=== PATIENT | male | born 1995 | race Caucasian/White ===

== ENCOUNTER 2019-06-02 16:31 | Emergency (ER) | payer BC ==
--- NOTE | 2019-06-02 17:02 | ED ---
Psychiatric Complaint - HPI Summary HPI Summary: This patient is a 24 year old M presenting to [facility] accompanied by with a chief complaint of worsening depression since 05/19/19 at 0800. Patient reports severe major depressive disorder for which he takes 20 mg of Trintellix daily. Pt reports prior hospitalization in 2011 for similar issues. Denies hx of having plan. Follows w counselor. Shx hernia repair. FMHx Mental illness ( depression and anxiety). - History Of Current Complaint Chief Complaint: EDMentalHealth Time Seen by Provider: 06/02/19 16:54 Accompanied By: Hx Obtained From: Patient Onset/Duration: Lasting Hours, Still Present Timing: Constant Aggravating Factor(s): Nothing Alleviating Factor(s): Nothing Related History: Positive For: Prior Psychiatric Issues Has Suicidal: Denies: With A Plan - Allergies/Home Medications Allergies/Adverse Reactions: Allergies Allergy/AdvReac Type Severity Reaction Status Date / Time No Known Allergies Allergy Verified 06/02/19 16:47 PMH/Surg Hx/FS Hx/Imm Hx Sensory History: Reports: Hx Contacts or Glasses Opthamlomology History: Reports: Hx Contacts or Glasses Psychiatric History: Reports: Hx Depression - Surgical History Surgery Procedure, Year, and Place: hernia repair Infectious Disease History: No Infectious Disease History: Denies: Traveled Outside the [place] in Last 30 Days - Family History Known Family History: Positive: Other - mental health (anxiety, depression) - Social History Alcohol Use: Rare Hx Substance Use: No Substance Use Type: Reports: None Hx Tobacco Use: No Smoking Status (MU): Never Smoked Tobacco Review of Systems Negative: Fever Positive: Depressed, Other - denies SI plan All Other Systems Reviewed And Are Negative: Yes Physical Exam - Summary Physical Exam Summary: Constitutional: Well-developed, Well-nourished, Alert. (-) Distressed Skin: Warm, Dry HENT: Normocephalic; Atraumatic Eyes: Conjunctiva normal Neck: Musculoskeletal ROM normal neck. (-) JVD, (-) Stridor, (-) Nuchal rigidity Cardio: Rhythm regular, rate normal, Heart sounds normal; Intact distal pulses; Radial pulses are 2+ and symmetric. (-) Murmur Pulmonary/Chest wall: Effort normal. (-) Respiratory distress, (-) Wheezes, (-) Rales Abd: Soft, (-) tenderness, (-) Distension, (-) Guarding, (-) Rebound Musculoskeletal: (-) Edema Lymph: (-) Cervical adenopathy Neuro: Alert, Oriented x3 Psych: positive depression and SI Triage Information Reviewed: Yes Vital Signs On Initial Exam: Initial Vitals Temp Pulse Resp BP Pulse Ox 97.8 F 87 14 139/82 99 06/02/19 16:42 06/02/19 16:42 06/02/19 16:42 06/02/19 16:42 06/02/19 16:42 Vital Signs Reviewed: Yes Procedures - Sedation Patient Received Moderate/Deep Sedation with Procedure: No Diagnostics - Vital Signs Vital Signs Temp Pulse Resp BP Pulse Ox 06/02/19 16:42 97.8 F 87 14 139/82 99 - Laboratory Result Diagrams: 06/02/19 17:04 06/02/19 17:04 Lab Statement: Any lab studies that have been ordered have been reviewed, and results considered in the medical decision making process. Course/Dx - Differential Dx/Clinical Impression Provider Diagnosis: Adjustment disorder - Physician Notifications Discussed Care Of Patient With: Nate Higginbotham Time Discussed With Above Provider: 18:00 Instructed by Provider To: Other - Pt is safe to go home Discharge ED - Sign-Out/Discharge Documenting (check all that apply): Patient Departure - discharge - Discharge Plan Condition: Stable Disposition: HOME Patient Education Materials: Depression (ED) Referrals: [facility] [Outside] (walk in hours are M-Th 930am-230 pm, F 10am-2pm) - Billing Disposition and Condition Condition: STABLE Disposition: Home - Attestation Statements Document Initiated by Scribe: Yes Documenting Scribe: Megan Cho Provider For Whom Isma is Documenting (Include Credential): Dr. Mckenzie Zuleta MD Scribe Attestation: Megan Dutton scribed for Dr. Mckenzie Zuleta MD on 06/02/19 at 2335. Scribe Documentation Reviewed: Yes Provider Attestation: The documentation as recorded by the susanibMegan solano accurately reflects the service I personally performed and the decisions made by me, Dr. Mckenzie Zuleta MD Status of Scribe Document: Viewed
[2019-06-02 17:17] LABS: ABS Basophils 0.1 10^3/ul (0-0.2); ABS Lymphocytes 1.7 10^3/ul (1.0-4.8); ABS Monocytes 0.7 10^3/ul (0-0.8); Eosinophil % 0.2 %; Hematocrit 46 % (42-52); Hemoglobin 15.8 g/dL (14.0-18.0); Lymphocyte % 13.7 %; Mean Corpuscular HGB Conc 34 g/dL (31-36); Mean Corpuscular Hemoglobin 29 pg (27-31); Mean Corpuscular Volume 86 fL (80-94); Mean Platelet Volume 7.7 fL (7.4-10.4); Nucleated Red Blood Cells % 0.1; Platelet Count 256 10^3/uL (150-450); Red Blood Count 5.36 10^6 /uL (4.18-5.48); Red Cell Distribution Width 13 % (10-15); White Blood Count 12.6 10^3/uL (3.5-10.8)
[2019-06-02 17:27] LABS: Urine Appearance Clear; Urine Bilirubin Negative (Negative); Urine Blood Negative (Negative); Urine Color Yellow; Urine Glucose Negative (Negative); Urine Ketones Negative (Negative); Urine Nitrite Negative (Negative); Urine Protein Negative (Negative); Urine Specific Gravity 1.018 (1.010-1.030); Urine Urobilinogen Negative (Negative)
[2019-06-02 17:35] LABS: ALT 51 U/L (7-52); AST 23 U/L (13-39); Albumin 4.5 g/dL (3.2-5.2); Albumin/Globulin Ratio 1.6 (1-3); Alkaline Phosphatase 48 U/L (34-104); Anion Gap 6 mmol/L (2-11); BUN/Creatinine Ratio 14.9 (8-20); Blood Urea Nitrogen 13 mg/dL (6-24); CO2 Carbon Dioxide 29 mmol/L (22-32); Calcium 9.9 mg/dL (8.6-10.3); Chloride 104 mmol/L (101-111); EGFR African American 129.4 (>60); EGFR Non-African American 106.9 (>60); Globulin 2.8 g/dL (2-4); Glucose 129 mg/dL (70-100); Potassium 4.1 mmol/L (3.5-5.0); Sodium 139 mmol/L (135-145); Total Protein 7.3 g/dL (6.4-8.9)
[2019-06-02 17:40] LABS: Acetaminophen < 15 mcg/mL; Alcohol < 10 mg/dL (<10); Salicylate < 2.50 mg/dL (<30)
[2019-06-02 17:46] LABS: Urine Benzodiazepine Screen None Detected (None Detect); Urine Opiates Screen None Detected (None Detect)
[2019-06-02 17:55] LABS: TSH (Thyroid Stimulating Horm) 1.48 mcIU/mL (0.34-5.60)
[2019-06-02 17:56] VITALS: BP 138/72
== END 2019-06-02 17:54 | disposition home or self-care (01) ==
LOC: EDSEX → ED 16:31
DX: F43.21 Adjustment disorder with depressed mood (principal); Z79.899 Other long term (current) drug therapy
CPT/HCPCS: 36415; 80053; 80307; 80320; 80329; 81003; 84443; 85025; 99283; G0480

== ENCOUNTER 2019-06-20 14:38 | Inpatient (IN) | payer BC ==
--- NOTE | 2019-06-20 15:05 | ED ---
Psychiatric Complaint - HPI Summary HPI Summary: 24-year-old male with a significant past medical history of anxiety, major depressive disorder presents to emergency department today with suicidal ideation. He was brought in by [facility] for mental health evaluation after his called the police due to him telling her of his suicidal ideation. She states she has felt depressed for a long time but the last 2 days has had increased urge to commit suicide. He states he does not have a plan but his says he talked about ways he would kill himself. Patient states he does not have active firearms at home and lives at home with his . He denies previous attempts at self-harm in the past and denies homicidal ideation. She states he sees a counselor every 2 weeks which he states does not help very much. He states he recently started 2 new medications yesterday, Buspirone and lithium. She was seen at this facility approximately 2 weeks ago with the same complaints and states we did not help. He denies recreational drug use, alcohol use, tobacco use. She denies fever, chest pain, shortness of breath, pain with urination. 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 - Onset/Duration: Gradual Onset Timing: Constant Severity Initially: Mild Severity Currently: Severe Character: Depressed, Anxious Aggravating Factor(s): Recent Stress Alleviating Factor(s): Nothing Associated Signs And Symptoms: Positive: Sleep Disturbance, Appetite Change, Social Withdrawal Related History: Positive For: Prior Psychiatric Issues Has Suicidal: Reports: Thoughts Has Homicidal: Denies: Thoughts - Risk Factor(s) Completed Suicide Risk Factors: Male, White Micronesian - Allergies/Home Medications Allergies/Adverse Reactions: Allergies Allergy/AdvReac Type Severity Reaction Status Date / Time No Known Allergies Allergy Verified 06/02/19 16:47 Home Medications: Home Medications Burley Carbonate ER TAB* 450 mg PO DAILY 06/20/19 [History Confirmed 06/20/19] Vortioxetine (NF) [Trintellix (NF)] 20 mg PO DAILY 06/20/19 [History Confirmed 06/20/19] busPIRone TAB* [Buspar TAB*] 10 mg PO DAILY 06/20/19 [History Confirmed 06/20/19 ] PMH/Surg Hx/FS Hx/Imm Hx Sensory History: Reports: Hx Contacts or Glasses Opthamlomology History: Reports: Hx Contacts or Glasses Psychiatric History: Reports: Hx Depression Denies: Hx Eating Disorder, Hx of Violent Episodes Against Others - Surgical History Surgery Procedure, Year, and Place: hernia repair Infectious Disease History: No Infectious Disease History: Denies: Traveled Outside the US in Last 30 Days - Family History Known Family History: Positive: Other - mental health (anxiety, depression) - Social History Alcohol Use: Rare Hx Substance Use: No Substance Use Type: Reports: None Hx Tobacco Use: No Smoking Status (MU): Never Smoked Tobacco Review of Systems Constitutional: Negative Eyes: Negative Cardiovascular: Negative Respiratory: Negative Gastrointestinal: Negative Skin: Negative Neurological: Negative Positive: Depressed All Other Systems Reviewed And Are Negative: Yes Physical Exam Triage Information Reviewed: Yes Vital Signs On Initial Exam: Initial Vitals Temp Pulse Resp BP Pulse Ox 98.7 F 88 16 115/78 95 06/20/19 14:54 06/20/19 14:54 06/20/19 14:54 06/20/19 14:54 06/20/19 14:54 Vital Signs Reviewed: Yes Appearance: Positive: Well-Appearing, No Pain Distress, Well-Nourished, Obese Skin: Positive: Warm, Skin Color Reflects Adequate Perfusion ENT: Positive: Hearing grossly normal Respiratory/Lung Sounds: Positive: Clear to Auscultation, Breath Sounds Present Cardiovascular: Positive: RRR, S1, S2 Abdomen Description: Positive: Nontender, Soft Bowel Sounds: Positive: Present Musculoskeletal: Positive: Strength/ROM Intact Neurological: Positive: Alert, Oriented to Person Place, Time, Normal Gait Psychiatric: Positive: Normal, Other - Makes poor eye contact and has a flat affect AVPU Assessment: Alert Procedures - Sedation Patient Received Moderate/Deep Sedation with Procedure: No Diagnostics - Vital Signs Vital Signs Temp Pulse Resp BP Pulse Ox 06/20/19 14:54 98.7 F 88 16 115/78 95 - Laboratory Result Diagrams: 06/20/19 15:22 06/20/19 15:22 Lab Statement: Any lab studies that have been ordered have been reviewed, and results considered in the medical decision making process. Course/Dx - Course Course Of Treatment: Patient was evaluated in the emergency department today for suicidal ideation. The patient was seen and examined. Upon arrival the patient was placed in a safe room. Laboratory studies including a urinalysis and toxicology were ordered. The patient was changed into hospital scrubs and placed under constant observation for the duration of his stay in the emergency department. His was present in the room during the entirety of his stay. Laboratory studies returned showing no abnormalities. His toxicology screen was negative. His vital signs are stable. Physical exam revealed no evidence of acute pathology. He was medically cleared for psychiatric evaluation. - Differential Dx/Clinical Impression Differential Diagnosis/HQI/PQRI: Positive: Acute Psychosis, Anxiety, Bipolar Disorder, Depression, Suicidal Ideation Provider Diagnosis: Depression Discharge ED - Sign-Out/Discharge Documenting (check all that apply): Sign-Out Patient Signing out patient TO: Verito Rosales - Discharge Plan Condition: Stable [facility] [Primary Care Provider] - - Billing Disposition and Condition Condition: STABLE
[2019-06-20 15:27] LABS: ABS Basophils 0.1 10^3/ul (0-0.2); ABS Eosinophils 0.1 10^3/ul (0-0.6); ABS Lymphocytes 1.2 10^3/ul (1.0-4.8); ABS Monocytes 0.9 10^3/ul (0-0.8); ABS Neutrophils 10.1 10^3/ul (1.5-7.7); Eosinophil % 1.2 %; Hematocrit 47 % (42-52); Hemoglobin 16.3 g/dL (14.0-18.0); Mean Corpuscular HGB Conc 35 g/dL (31-36); Mean Corpuscular Hemoglobin 30 pg (27-31); Mean Corpuscular Volume 86 fL (80-94); Mean Platelet Volume 7.4 fL (7.4-10.4); Nucleated Red Blood Cells % 0.1; Platelet Count 231 10^3/uL (150-450); Red Blood Count 5.47 10^6 /uL (4.18-5.48); Red Cell Distribution Width 13 % (10-15); White Blood Count 12.5 10^3/uL (3.5-10.8)
[2019-06-20 15:48] LABS: ALT 58 U/L (7-52); AST 25 U/L (13-39); Albumin 4.3 g/dL (3.2-5.2); Albumin/Globulin Ratio 1.5 (1-3); Alkaline Phosphatase 49 U/L (34-104); Anion Gap 6 mmol/L (2-11); BUN/Creatinine Ratio 13.6 (8-20); Blood Urea Nitrogen 11 mg/dL (6-24); CO2 Carbon Dioxide 27 mmol/L (22-32); Calcium 9.6 mg/dL (8.6-10.3); Chloride 105 mmol/L (101-111); EGFR African American 140.5 (>60); EGFR Non-African American 116.1 (>60); Globulin 2.9 g/dL (2-4); Glucose 103 mg/dL (70-100); Potassium 4.1 mmol/L (3.5-5.0); Sodium 138 mmol/L (135-145); Total Protein 7.2 g/dL (6.4-8.9)
[2019-06-20 16:07] LABS: Acetaminophen < 15 mcg/mL; Alcohol < 10 mg/dL (<10); Salicylate < 2.50 mg/dL (<30)
[2019-06-20 16:11] LABS: TSH (Thyroid Stimulating Horm) 0.83 mcIU/mL (0.34-5.60)
[2019-06-20 16:56] LABS: Urine Appearance Clear; Urine Bilirubin Negative (Negative); Urine Blood Negative (Negative); Urine Color Yellow; Urine Glucose Negative (Negative); Urine Ketones Negative (Negative); Urine Nitrite Negative (Negative); Urine Protein Negative (Negative); Urine Specific Gravity 1.014 (1.010-1.030); Urine Urobilinogen Negative (Negative)
[2019-06-20 17:15] LABS: Urine Benzodiazepine Screen None Detected (None Detect); Urine Opiates Screen None Detected (None Detect)
--- NOTE | 2019-06-20 18:16 | ED ---
Course/Dx - Course Course Of Treatment: Patient was evaluated in the emergency department today for suicidal ideation. The patient was seen and examined. Upon arrival the patient was placed in a safe room. Laboratory studies including a urinalysis and toxicology were ordered. The patient was changed into hospital scrubs and placed under constant observation for the duration of his stay in the emergency department. His was present in the room during the entirety of his stay. Laboratory studies returned showing no abnormalities. His toxicology screen was negative. His vital signs are stable. Physical exam revealed no evidence of acute pathology. He was medically cleared for psychiatric evaluation. after mental health exam patient will be transferred to another facility for . patient will be signed out to dr mehta pending acceptance at facility for transfer - Diagnoses Provider Diagnoses: Depression Discharge ED - Sign-Out/Discharge Documenting (check all that apply): Sign-Out Patient, Receiving Sign-Out Signing out patient TO: Lawrence Mehta Receiving patient FROM: Edmond Mcneill - Discharge Plan Condition: Stable Referrals: [facility] - Andrew SULLIVAN [Primary Care Provider] - - Billing Disposition and Condition Condition: STABLE
[2019-06-20] MEDS ORDERED: LORazepam TAB(*) 1 MG PO ONE (23:38)
--- NOTE | 2019-06-21 03:45 | ED ---
Progress - Progress Note Progress Note: Patient is received as a sign-out from BRENDAN Rosales at [place] shift end at approximately 0230 06/21/19 pending transfer of this mental health patient to another psychiatric facility. - Consult/PCP Time Called: 19:00 Course/Dx - Course Course Of Treatment: Patient is received as a sign-out from BRENDAN Rosales at [place] shift end at approximately 0230 06/21/19 pending transfer of this mental health patient to another psychiatric facility. Patient remained stable throughout shift. Patient is signed out to Dr. Zuleta at 0700 06/21/19 shift change pending accepting psychiatric facility of this mental health patient. - Diagnoses Provider Diagnoses: Depression Discharge ED - Sign-Out/Discharge Documenting (check all that apply): Sign-Out Patient, Receiving Sign-Out Signing out patient TO: Mckenzie Zuleta Receiving patient FROM: Verito Rosales - Discharge Plan Condition: Stable Disposition: [facility]IATRIC FACILITY[facility] - Billing Disposition and Condition Condition: STABLE Disposition: Psychiatric Facility [facility] - Attestation Statements Document Initiated by Scribe: Yes Documenting Scribe: NAV SPENCER Provider For Whom Scribe is Documenting (Include Credential): NETO HEWITT MD Scribe Attestation: INAV, scribed for NETO HEWITT MD on 06/21/19 at 1911. Scribe Documentation Reviewed: Yes Provider Attestation: The documentation as recorded by the NAV owens accurately reflects the service I personally performed and the decisions made by me, NETO HEWITT MD Status of Scribe Document: Viewed
[2019-06-21] MEDS: VORTIOXETINE 20 MG PO SCH ×2 (03:52→21:39)
--- NOTE | 2019-06-21 07:44 | ED ---
Progress - Progress Note Progress Note: This patient is a sign out from Dr. Fallon to Dr. Zuleta pending transfer to another psychiatric facility. Course/Dx - Course Course Of Treatment: This pt was signed out by Dr. Fallon pending transfer to another psychiatric facility. Mental health line runner reports due to bed availibility pt will be admitted to [facility] on an involuntary status by Dr. Veliz, psychiatrist. Dx: depression. - Diagnoses Provider Diagnoses: Depression Discharge ED - Sign-Out/Discharge Documenting (check all that apply): Patient Departure - Admit to [facility], Receiving Sign-Out Receiving patient FROM: Lawrence Fallon - Discharge Plan Condition: Stable Disposition: PSYCHIATRIC FACILITY-[facility] [place] Referrals: [facility] - Andrew [Primary Care Provider] - - Billing Disposition and Condition Condition: STABLE Disposition: Psychiatric Facility [facility] [place] - Attestation Statements Document Initiated by Manjuibe: Yes Documenting Scribe: Qing Jarrell Provider For Whom Isma is Documenting (Include Credential): Mckenzie Zuleta MD Scribe Attestation: IQing, scribed for Mckenzie Zuleta MD on 06/21/19 at 1100. Scribe Documentation Reviewed: Yes Provider Attestation: The documentation as recorded by the Qing owens accurately reflects the service I personally performed and the decisions made by , Mckenzie Zuleta MD Status of Scribe Document: Viewed
[2019-06-21] MEDS ORDERED: Al Hydrox/Mg Hydrox/Simet LIQ* 30 ML UDC PO PRN (11:42)
[2019-06-21] MEDS ORDERED: Acetaminophen TAB* 325 MG PO PRN (11:42)
[2019-06-21] MEDS ORDERED: hydrOXYzine HCL TAB* 50 MG PO PRN (11:43)
--- NOTE | 2019-06-21 14:46 | HP ---
H&P (Free Text) History and Physical: Justification for admission: Immediate Safety. CC " I am depressed" The patient was brought to [facility] after waking up and feeling suicidal. His plan for suicide included hanging himself or jumping from a bridge. 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 He reported the last week having times where he would dissociate. His recent stressor included asking his of her past dating history and finding out that she had casual sex with other prior to them dating and finding this out made him feel uncomfortable. He reported going to [facility] and speaking to one of the counselors before coming to the hospital. He reported having intrusive thoughts about his wifes prior dating life, and that people have told him he is rigid and inflexible . He denied access to firearms or stockpiles of medications. He reported having poor sleep 5hrs and appetite. The patient denied homicidal ideation intent or plan. The patient denied auditory and/ or visual hallucinations. MDD Reported the last 2 weeks he has been having increased depression and not having the ability to enjoy things. He reported hopelessness and worthlessness. Reported unintentional weight loss lack of energy. He feels depressed and is current having suicidal ideation. Anxiety Denied having symptoms of anxiety such as having times where heart feels that it is beating out of chest , sweaty palms, or shallow breathing. Denied having uncomfortable or intrusive thoughts. Denied feeling restless, high strung, or worrying too much most of the time. History of panic attacks but has been in remission for the last 2 years. Bipolar Denied symptoms of luc such as having many ideas at once. Denied increased talkativeness where no one can interrupt. Denied feeling irritable most of the time while having an persistent abundance of energy most of the day without the use of energy drinks, stimulants, or recreational drug use. Denied an increase in intensity in goal directed activities. Denied having the decreased need to sleep for days , having prolonged elevated mood , or feeling on top of the world. Denied impulsive risky sexual encounters. Denied spending money recklessly , going on spending sprees wiping out savings. Denied impulsively traveling out of town or country, having super bautista, and unrealistic wealth or fame. Psychosis Does not endorse hearing things that other people do not hear or seeing things other people do not see. Denied feeling that TV is making references. Denied feeling that people are spying , following , or reading their thoughts. Phobias: Patient denied having excessive fear of a particular thing or situation. Eating disorders: Patient denied having excessive eating habits or feelings of guilt after eating. Denied repeated episodes of self induced vomiting after eating. PTSD Denied flashbacks, nightmares and avoidance of a prior traumatic event. PAST PSYCHIATRIC HISTORY: Prior Diagnosis : Major depressive disorder History of past Psychiatric Hospitalizations: 2 prior psychiatric admission in [facility] when he was 16 years old History of past suicide/homicide attempts : Denied past suicide attempts or self injurious behaviors. No history of violence. Outpatient follow-up: [facility] Medications: Past trials of medications include paxil, seroquel, effexor, trazodone, prozac, and others he is unable to recall. He has never had ECT. Current medications include Trintellix 20mg PO daily, Buspar 10mg Daily and Ignacio 450mg Daily Guardianship: None. FAMILY HISTORY: - Suicide: Denied family history of suicide. - Mental illness: Denied a history of mental health in immediate family members. - Substance abuse: Denied substance abuse among family members. SUBSTANCE ABUSE HISTORY: Denied using alcohol, tobacco, heroin cocaine or other illicit substances. Denied abusing pills for recreational use. Denied past Substance abuse treatment. SOCIAL HISTORY: - Denied a history of childhood physical and or sexual abuse Born in [place], [place] and raised by both parents who in 2004. 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 - Allergies: Denied drug or other allergies. Physical Exam: Please see ED note Mental Status Exam on Admission APPEARANCE : 24 year old male who appears stated age. Patient is not malodourous, and appears to have fair hygiene and grooming. BEHAVIOR: Cooperative , calm EYE CONTACT: Fair PSYCHOMOTOR ACTIVITY: No psychomotor agitation or retardation. MOVEMENTS: No abnormal movements observed. SPEECH : Normal rate, rhythm, volume and tone. MOOD : "Sad " AFFECT : Type is depressed Range is blunted THOUGHT PROCESS: Formulated and organized in a logical, linear goal directed manner. THOUGHT CONTENT: no delusions, obsessions, phobias or preoccupations. PERCEPTION: No current auditory or visual hallucinations. Doesnt appear to be responding to internal cues. No evidence of depersonalization , de-realization, or illusions SUICIDALITY Current suicidal ideation with plan HOMICIDALITY Denied homicidal ideation, intent or plan. Insight/judgment: Fair insight and judgment ORIENTATION: Oriented to self, location, and time. Diagnosis on Admission: Major depressive Disorder, severe. Assessment: 24 year old with history of Major depressive disorder came to the hospital upon having suicidal ideation with plan to hang himself or jump from a bridge and was admitted to the [facility] at [facility]. Plan #Admit to BSU, Q15 minute observation. Start regular diet. Encourage participation in activities on the milieu. #Patient evaluated in ED and was determined by the emergency room Physician to be medically fit for admission to the BSU. # Justification for Admission: For immediate safety per outlined in the [facility] Hygiene Code. # The patient requires psychiatric inpatient admission at this time to assure safety, receive treatment and work toward stabilization. # Labs ordered: CBC, CMP, UDS, TSH, HBA1c, TSH, Toxicology screen, Urine analysis, and lipid profile. # Obtain collateral information once release is signed. # Collaboration with Social Work # Start wellbutrin 150mg PO daily for now. # Wellbutrin can increased levels of Trintellix will continue to monitor. #Goals before discharge include: To eliminate/ reduce suicidal ideation Tentative Discharge: Pending psychiatric stabilization The risks, benefits, and alternative treatment options were discussed as well as the risks of refusing treatment. After this discussion and an acknowledgement of this understanding was made. A risk/ benefit assessment of treatment was considered and discussed with the patient. When comparing the risks of treatment with the dangers of not receiving treatment, the benefits of treatment outweigh the treatment risks at this time. Risks of allergy, suicidal ideation, behavioral changes, dystonia, rashes, electrolyte imbalances, movement disorders, cardiac conduction changes, serotonin syndrome, metabolic risks were among some of the risks discussed. Acetaminophen (Tylenol Tab*) 650 mg PO Q4H PRN PRN Reason: for pain; or Temp >101 F Al Hydrox/Mg Hydrox/Simethicone (Maalox Plus*) 30 ml PO Q4H PRN PRN Reason: INDIGESTION Bupropion HCl (Wellbutrin Xl *) 150 mg PO DAILY BULL Buspirone HCl (Buspar Tab*) 10 mg PO DAILY BULL Hydroxyzine HCl (Atarax Tab*) 50 mg PO Q6H PRN PRN Reason: anxiety Ignacio Carbonate (Ignacio Carbonate Er Tab*) 450 mg PO DAILY BULL Vortioxetine (Trintellix (Nf)) 20 mg PO BEDTIME BULL Last Admin: 06/21/19 03:52 Dose: 20 mg Sodium 138 mmol/L (135-145) 06/20/19 15:22 Potassium 4.1 mmol/L (3.5-5.0) 06/20/19 15:22 BUN 11 mg/dL (6-24) 06/20/19 15:22 Creatinine 0.81 mg/dL (0.67-1.17) 06/20/19 15:22 Calcium 9.6 mg/dL (8.6-10.3) 06/20/19 15:22 AST 25 U/L (13-39) 06/20/19 15:22 ALT 58 U/L (7-52) H 06/20/19 15:22
[2019-06-21] MEDS: BuPROPion XL* 150 MG TAB.XL PO SCH (18:02)
[2019-06-22] MEDS: Lithium Carbonate ER* 450 MG TAB.ER PO SCH (10:01)
[2019-06-22] MEDS: BuPROPion XL* 150 MG TAB.XL PO SCH (10:01)
[2019-06-22] MEDS: busPIRone TAB* 10 MG PO SCH (10:02)
[2019-06-22] MEDS: VORTIOXETINE 20 MG PO SCH (22:00)
[2019-06-23] MEDS: BuPROPion XL* 150 MG TAB.XL PO SCH (08:46)
[2019-06-23] MEDS: Lithium Carbonate ER* 450 MG TAB.ER PO SCH (08:46)
[2019-06-23] MEDS: busPIRone TAB* 10 MG PO SCH (11:47)
--- NOTE | 2019-06-23 18:23 | PN ---
Subjective - Subjective Date of Service: 06/23/19 Subjective: [place] remains seclusive to his room, he endorses restful sleep, improving mood , less thoughts of suicide and he contracts for safety. He denies side effects from prescribed meds. Objective - General Observations Appearance: Well Groomed Appears Stated Age: Yes Stature: WNL Posture: WNL Eye Contact: Average Behavior/Activity: WNL - Interaction Observations Attitude Towards Examiner: Cooperative Stated Mood: Dysphoric Affect: Restricted Speech Pattern/Tone: Quiet Volume Thought Process: Coherent, Goal Directed Perception: WNL Thought Content: WNL Hallucination Type: None Delusion Type: None - Cognitive Function Orientation: A&O x 4 Level of Consciousness: Alert Cognition: WNL Judgment Within Normal Limits: Yes - Medication Compliance Cooperative with Inpatient Medication Regimen: Yes - Group Participation Participates in Group Activities: No Assessment - Assessment Merits Inpatient Hospitalization: For Ongoing Evaluation, Consolidate Improvements, For Discharge Planning Clinical Impression: Reporting lower distress level, denying suicidaility, los for safety. Med management continues trials of trintellix, buspar, wellbutrin and lithium. Plan - Plan Treatment Plan: Name: ISRAEL SULLIVAN Birthdate: 1995 [id number] Continued Medication Management: Continue Outpt Medication Medications: Current Medications Acetaminophen (Tylenol Tab*) 650 mg PO Q4H PRN PRN Reason: for pain; or Temp >101 F Last Admin: 06/22/19 10:38 Dose: 650 mg Al Hydrox/Mg Hydrox/Simethicone (Maalox Plus*) 30 ml PO Q4H PRN PRN Reason: INDIGESTION Bupropion HCl (Wellbutrin Xl *) 150 mg PO DAILY [facility] Last Admin: 06/23/19 08:46 Dose: 150 mg Buspirone HCl (Buspar Tab*) 10 mg PO DAILY [facility] Last Admin: 06/23/19 11:47 Dose: 10 mg Hydroxyzine HCl (Atarax Tab*) 50 mg PO Q6H PRN PRN Reason: anxiety Last Admin: 06/22/19 22:01 Dose: 50 mg [place] Carbonate (G[place]nee Carbonate Er Tab*) 450 mg PO DAILY [facility] Last Admin: 06/23/19 08:46 Dose: 450 mg Vortioxetine (Trintellix (Nf)) 20 mg PO BEDTIME [facility] Last Admin: 06/22/19 22:00 Dose: 20 mg - Discharge Plan Discharge Plan: Outpatient Follow Up Outpatient Program: Counseling/Psych Services at [place]
[2019-06-23] MEDS: VORTIOXETINE 20 MG PO SCH (20:35)
[2019-06-24 08:36] LABS: HDL Cholesterol 30.9 mg/dL
--- NOTE | 2019-06-24 08:52 | PN ---
Subjective - Subjective Date of Service: 06/24/19 Service Type: 33822 Hosp care 35 min high complexity Subjective: Nursing Report: Patient was visible on unit, no behavioral incidents. Slept overnight. He is attending group activities. CC: "Better" Patient was seen and evaluated in the common room. The patient reported he no longer feels suicidal and is ready for discharge. He outlined a detailed safety plan in the event that he feels suicidal. His visited today and a family meeting took place. He reported having adequate appetite and sleep. The patient reports attending some day groups. Per nursing no behavioral issues or overnight events reported. Patient reported that he is tolerating medications without side effects. Objective - General Observations Appearance: Neat Appears Stated Age: Yes Stature: Overweight Posture: Slumped Eye Contact: Average Behavior/Activity: WNL - Interaction Observations Attitude Towards Examiner: Cooperative Stated Mood: Euthymic Affect: Restricted Speech Pattern/Tone: Clear Thought Process: Coherent Perception: WNL Thought Content: WNL Hallucination Type: None Delusion Type: None - Cognitive Function Orientation: A&O x 4 Level of Consciousness: Awake - Medication Compliance Cooperative with Inpatient Medication Regimen: Yes - Group Participation Participates in Group Activities: Partial Assessment - Assessment Merits Inpatient Hospitalization: For Immediate Safety Clinical Impression: Reporting lower distress level, denying suicidaility, los for safety. Med management continues trials of trintellix, buspar, wellbutrin and lithium. Plan - Plan Treatment Plan: Name: ARCELIA SULLIVAN Birthdate: 1995 [id number] #Q30 minute observation with staff pass. # The patient requires psychiatric inpatient admission at this time to assure safety, receive treatment and work toward stabilization. # Obtained collateral information from confirmed no access to firearms and meds and knifes locked in safe. confirmed patient is at baseline. # MMPI and Bea Brown scale # Collaboration with Social Work # Continue wellbutrin 150mg PO daily for now. Discussed how Wellbutrin can increased levels of Trintellix and increase risk of serotonin syndrome , patient accepted these risks given improvement in symptoms and wishes to continue. # [facility] follow up tomorrow #Goals before discharge include: To eliminate/ reduce suicidal ideation Tentative Discharge: Tomorrow The risks, benefits, and alternative treatment options were discussed as well as the risks of refusing treatment. After this discussion and an acknowledgement of this understanding was made. A risk/ benefit assessment of treatment was considered and discussed with the patient. When comparing the risks of treatment with the dangers of not receiving treatment, the benefits of treatment outweigh the treatment risks at this time. Risks of allergy, suicidal ideation, behavioral changes, dystonia, rashes, electrolyte imbalances, movement disorders, cardiac conduction changes, serotonin syndrome, metabolic risks were among some of the risks discussed. Continued Medication Management: Continue Outpt Medication Medications: Current Medications Acetaminophen (Tylenol Tab*) 650 mg PO Q4H PRN PRN Reason: for pain; or Temp >101 F Last Admin: 06/22/19 10:38 Dose: 650 mg Al Hydrox/Mg Hydrox/Simethicone (Maalox Plus*) 30 ml PO Q4H PRN PRN Reason: INDIGESTION Bupropion HCl (Wellbutrin Xl *) 150 mg PO DAILY [facility] Last Admin: 06/23/19 08:46 Dose: 150 mg Buspirone HCl (Buspar Tab*) 10 mg PO DAILY [facility] Last Admin: 06/23/19 11:47 Dose: 10 mg Hydroxyzine HCl (Atarax Tab*) 50 mg PO Q6H PRN PRN Reason: anxiety Last Admin: 06/22/19 22:01 Dose: 50 mg [place] Carbonate ([place] Carbonate Er Tab*) 450 mg PO DAILY [facility] Last Admin: 06/23/19 08:46 Dose: 450 mg Vortioxetine (Trintellix (Nf)) 20 mg PO BEDTIME [facility] Last Admin: 06/23/19 20:35 Dose: 20 mg - Discharge Plan Discharge Plan: Inpatient Hospitalization Outpatient Program: Counseling/Psych Services at [place]
[2019-06-24 09:31] LABS: Lithium 0.11 mmol/L (0.6-1.2)
[2019-06-24] MEDS: busPIRone TAB* 10 MG PO SCH (10:04)
[2019-06-24] MEDS: Lithium Carbonate ER* 450 MG TAB.ER PO SCH (10:04)
[2019-06-24] MEDS: BuPROPion XL* 150 MG TAB.XL PO SCH (10:04)
[2019-06-24] MEDS: VORTIOXETINE 20 MG PO SCH (20:29)
[2019-06-25 08:53] VITALS: BP 139/72
[2019-06-25] MEDS: busPIRone TAB* 10 MG PO SCH (09:12)
[2019-06-25] MEDS: Lithium Carbonate ER* 450 MG TAB.ER PO SCH (09:12)
[2019-06-25] MEDS: BuPROPion XL* 150 MG TAB.XL PO SCH (09:12)
--- NOTE | 2019-06-25 10:23 | DS ---
Subjective - Subjective Service Types: 57018 [facility] Day Mgmt complex over 30 min Discharge Date: 06/25/19 Subjective: CC: " I am better today" Patient looks forward to seeing his . The patient was seen and evaluated before discharge today. The patient reported having adequate appetite and sleep. The patient reports attending and participating in day groups. Per nursing no behavioral issues or overnight events reported. Patient reported tolerating medications without side effects. Justification for admission: Immediate Safety. CC " I am depressed" The patient was brought to [facility] after waking up and feeling suicidal. His plan for suicide included hanging himself or jumping from a bridge. 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 He reported the last week having times where he would dissociate. His recent stressor included asking his of her past dating history and finding out that she had casual sex with other prior to them dating and finding this out made him feel uncomfortable. He reported going to [facility] and speaking to one of the counselors before coming to the hospital. He reported having intrusive thoughts about his wifes prior dating life, and that people have told him he is rigid and inflexible . He denied access to firearms or stockpiles of medications. He reported having poor sleep 5hrs and appetite. The patient denied homicidal ideation intent or plan. The patient denied auditory and/ or visual hallucinations. MDD Reported the last 2 weeks he has been having increased depression and not having the ability to enjoy things. He reported hopelessness and worthlessness. Reported unintentional weight loss lack of energy. He feels depressed and is current having suicidal ideation. Anxiety Denied having symptoms of anxiety such as having times where heart feels that it is beating out of chest , sweaty palms, or shallow breathing. Denied having uncomfortable or intrusive thoughts. Denied feeling restless, high strung, or worrying too much most of the time. History of panic attacks but has been in remission for the last 2 years. Bipolar Denied symptoms of luc such as having many ideas at once. Denied increased talkativeness where no one can interrupt. Denied feeling irritable most of the time while having an persistent abundance of energy most of the day without the use of energy drinks, stimulants, or recreational drug use. Denied an increase in intensity in goal directed activities. Denied having the decreased need to sleep for days , having prolonged elevated mood , or feeling on top of the world. Denied impulsive risky sexual encounters. Denied spending money recklessly , going on spending sprees wiping out savings. Denied impulsively traveling out of town or country, having super bautista, and unrealistic wealth or fame. Psychosis Does not endorse hearing things that other people do not hear or seeing things other people do not see. Denied feeling that TV is making references. Denied feeling that people are spying , following , or reading their thoughts. Phobias: Patient denied having excessive fear of a particular thing or situation. Eating disorders: Patient denied having excessive eating habits or feelings of guilt after eating. Denied repeated episodes of self induced vomiting after eating. PTSD Denied flashbacks, nightmares and avoidance of a prior traumatic event. PAST PSYCHIATRIC HISTORY: Prior Diagnosis : Major depressive disorder History of past Psychiatric Hospitalizations: 2 prior psychiatric admission in [facility] when he was 16 years old History of past suicide/homicide attempts : Denied past suicide attempts or self injurious behaviors. No history of violence. Outpatient follow-up: [facility] Medications: Past trials of medications include paxil, seroquel, effexor, trazodone, prozac, and others he is unable to recall. He has never had ECT. Current medications include Trintellix 20mg PO daily, Buspar 10mg Daily and Morris 450mg Daily Guardianship: None. FAMILY HISTORY: - Suicide: Denied family history of suicide. - Mental illness: Denied a history of mental health in immediate family members. - Substance abuse: Denied substance abuse among family members. SUBSTANCE ABUSE HISTORY: Denied using alcohol, tobacco, heroin cocaine or other illicit substances. Denied abusing pills for recreational use. Denied past Substance abuse treatment. SOCIAL HISTORY: - Denied a history of childhood physical and or sexual abuse Born in [place], [place] and raised by both parents who in 2004. 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 - Allergies: Denied drug or other allergies. Physical Exam: Please see ED note Mental Status Exam on Admission APPEARANCE : 24 year old male who appears stated age. Patient is not malodourous, and appears to have fair hygiene and grooming. BEHAVIOR: Cooperative , calm EYE CONTACT: Fair PSYCHOMOTOR ACTIVITY: No psychomotor agitation or retardation. MOVEMENTS: No abnormal movements observed. SPEECH : Normal rate, rhythm, volume and tone. MOOD : "Sad " AFFECT : Type is depressed Range is blunted THOUGHT PROCESS: Formulated and organized in a logical, linear goal directed manner. THOUGHT CONTENT: no delusions, obsessions, phobias or preoccupations. PERCEPTION: No current auditory or visual hallucinations. Doesnt appear to be responding to internal cues. No evidence of depersonalization , de-realization, or illusions SUICIDALITY Current suicidal ideation with plan HOMICIDALITY Denied homicidal ideation, intent or plan. Insight/judgment: Fair insight and judgment ORIENTATION: Oriented to self, location, and time. Diagnosis on Admission: Major depressive Disorder, severe. Diagnosis on Discharge: Major depressive Disorder, in partial remission. Condition at the time of discharge: At the time of discharge patient showed improvement of sleep and appetite. The patient was not a danger to self or others. The patient denied suicidal ideation, intent or plan. The patient denied homicidal targets, ideation, intent or plan. This patient participated in psychosocial rehabilitation and gained some insight into problems. The patient gained insight into mental illness, triggers, and treatment. The patient took medication as prescribed. The patient denied side effects of medication and objective signs of side effects were not evident. Therapy Resources were offered to the patient. Patient was given a supply of prescriptions at the time of discharge. The patient plans to attend follow up care with the follow up arrangements that were discussed and put in place. Patient was asked to keep appointments as scheduled, take medication as prescribed, have routine follow up care with their primary care physician and refrain from any use of alcohol or drugs. Objective - General Observations Appearance: Neat Appears Stated Age: Yes Stature: Overweight Posture: Slumped Eye Contact: Average Behavior/Activity: WNL - Interaction Observations Attitude Towards Examiner: Cooperative Stated Mood: Euthymic Affect: Full Speech Pattern/Tone: Clear Thought Process: Coherent Perception: WNL Thought Content: WNL Hallucination Type: None Delusion Type: None - Cognitive Function Orientation: A&O x 4 Level of Consciousness: Awake - Medication Compliance Cooperative with Inpatient Medication Regimen: Yes - Group Participation Participates in Group Activities: Yes Treatment Course & Assessment Clinical Course & Impression: Hospital course part A: 24 year old with history of Major depressive disorder came to the hospital upon having suicidal ideation with plan to hang himself or jump from a bridge and was admitted to the [facility] at [facility]. Hospital course part B: Labs ordered included CBC, CMP, UDS, TSH, HBA1c, TSH, Toxicology screen, Urine analysis, and lipid profile. Labs were reviewed and did not require the need for further evaluation. Vital signs were monitored during the course of admission. MMPI was ordered and indicated features of depression and internalization scale. Bea Brown scale was sub-clinical for OCD. The patient was admitted to the adult behavioral unit and placed on 15 minute check for safety. At a later time the patient was on Q30 minute observation and staff pass privileges. With those limits being extended, patient was safe on all checks and there were no occurrence of behavioral incidents. The patient did well on the unit and went to groups. Interacted with peers had adequate sleep and regular appetite. Tolerated medication changes without side effects. Group therapy and services were offered. The risks, benefits, and alternative treatment options were discussed as well as of the risks of refusing treatment. Treatment associated risks discussed. After this discussion made an acknowledgement of this understanding. Follow up care appointments were put in place. The importance of monitoring for metabolic changes was discussed and acknowledgement of this understanding was made. The patient was informed not to abruptly stop or start new medications before consulting with a medical professional. Improvements in patient from the time of admission include: Improved affect, sleep and decrease in anxiety. The patient expressed readiness for discharge home. The patient presents with a broader range of affect, and the absence of depressed mood, delusions, perceptual disturbance. The patient denied suicidal and or homicidal ideation intent or plan. Overall, the patient responded well to inpatient treatment as evidenced by their report of strengthening of coping mechanisms, reduced distress, and more positive outlook on circumstances. Of note there was an improvement of recognizing how emotional state can effect mood and behavior. Safety precautions were put in place which included involving the patient and their family to closely monitor for changes in mental state. In addition, implementing follow up care, screening for the need to remove/securing firearms , weapons and stockpile of medications. Patient/ family instructed to immediately call 911 should any safety concerns arise. The patient was advised of the 24 hour / 7 days a week availability of the emergency room and to call 911 in the event of an emergency such as being suicidal and/ or homicidal. The patient was informed of the contact information for [facility], Suicide Prevention and Crisis Services, National Suicide Prevention Lifeline, [facility], Alcoholics Anonymous, and [facility]. Morris level 0.11. He tolerated medications and was advised about the importance of monitoring medication levels after leaving the hospital. Medications started included wellbutrin 150mg daily with good clinical response. Discussed how Wellbutrin can increased levels of Trintellix and increase risk of serotonin syndrome , patient accepted these risks given improvement in symptoms and wishes to continue for now. Home medications were continued and included buspar 10mg daily and lithium 450mg daily and trintellix 20mg qhs. He had adequate supply of medications and was provided refill on those needed which included Trintellix and Wellbutrin. Family meeting took place before discharge. The family confirmed that the patient is at their baseline. At this time both the patient and family are eager for discharge and are in agreement with the discharge plan set forth by the treatment team and can safely receive care in the less restrictive outpatient setting. They were advised on how the days following discharge can be a vulnerable period and to look out for warning signs associated with decompensation and progression of mental illness. They were notified of the resources available in the event these situations arise and confirmed that the patient has no access to firearms or stockpiles of medications. His has a safe and locks up medications and knifes. Patient was not assaultive or a behavioral problem during the course of admission. The patient showed improvement of hygiene and was able to carry out activities of daily living. Patient will be discharged to live at home. Follow up appointment at [facility] today at 345pm Patient informed of follow up appointment times. See more details for follow up care in the discharge plan. Risk factors were mitigated by establishing the patients baseline with close contacts and arranging a family meeting. Implementing precautionary safety measures by confirming no stockpiles of medications and no access to firearms , providing mental health treatment, stabilization of depressive features, arrangement of outpatient continuation of care, as well as provided a supportive care environment and therapy resources during the course of hospitalization. Relationship stressors addressed before discharge and met with the patient and his . Safety plan was reviewed and discussed with the patient. Patient has detailed step by step safety plan and includes talking to his how he is doing and identifying signs of when he is not doing well. Patient was able to advocate for himself which he was unable to do on admission. Risk factors: , history of mental illness. History of Depression. Protective factors: Currently no suicidal ideation, intent or plan. No prior suicide attempts. He is and lives with his , Has social/ family support system. No history of service. Currently no feelings of hopelessness, not in an occupation of social isolation, doesnt have multiple medical conditions, no family history of suicide, doesnt have access to firearms. Doesnt have command hallucinations and or psychotic features at this time. No current substance abuse. No current alcohol abuse. Not an anniversary of a loss of a loved one. No changes in relationship status, housing, job, or school. Currently future orientated. Patient engaged in treatment and compliant with medication. Sodium 138 mmol/L (135-145) 06/20/19 15:22 Potassium 4.1 mmol/L (3.5-5.0) 06/20/19 15:22 BUN 11 mg/dL (6-24) 06/20/19 15:22 Creatinine 0.81 mg/dL (0.67-1.17) 06/20/19 15:22 Hemoglobin A1c 5.3 % (4.0-5.6) 06/24/19 08:02 Calcium 9.6 mg/dL (8.6-10.3) 06/20/19 15:22 AST 25 U/L (13-39) 06/20/19 15:22 ALT 58 U/L (7-52) H 06/20/19 15:22 Triglycerides 140 mg/dL 06/24/19 08:02 Cholesterol 159 mg/dL 06/24/19 08:02 LDL Cholesterol 100 mg/dL 06/24/19 08:02 Merits Inpatient Hospitalization: No Clear for Discharge: Adequate Clinical Respons Discharge Planning - Discharge Planning Discharge Plan: Outpatient Follow Up Outpatient Program: Counseling/Psych Services at [place] Recommendations for Continuing Care: Medication Management Medications: Current Medications Acetaminophen (Tylenol Tab*) 650 mg PO Q4H PRN PRN Reason: for pain; or Temp >101 F Last Admin: 06/22/19 10:38 Dose: 650 mg Al Hydrox/Mg Hydrox/Simethicone (Maalox Plus*) 30 ml PO Q4H PRN PRN Reason: INDIGESTION Bupropion HCl (Wellbutrin Xl *) 150 mg PO DAILY [facility] Last Admin: 06/25/19 09:12 Dose: 150 mg Buspirone HCl (Buspar Tab*) 10 mg PO DAILY [facility] Last Admin: 06/25/19 09:12 Dose: 10 mg Hydroxyzine HCl (Atarax Tab*) 50 mg PO Q6H PRN PRN Reason: anxiety Last Admin: 06/22/19 22:01 Dose: 50 mg [place] Carbonate (Morris Carbonate Er Tab*) 450 mg PO DAILY [facility] Last Admin: 06/25/19 09:12 Dose: 450 mg Vortioxetine (Trintellix (Nf)) 20 mg PO BEDTIME [facility] Last Admin: 06/24/19 20:29 Dose: 20 mg Discharge Planning: Prescriptions provided for discharge [x] Yes [] No Follow up care details as per social work arrangements. Patient response to discharge plan: [x] eager for discharge [] agreeable with discharge plan [] ambivalent about discharge [] disagrees with discharge today
--- NOTE | 2019-06-25 13:59 | CONS ---
PSYCHOLOGICAL REPORT: DATE OF CONSULT: 06/25/19 PROCEDURE CODE: [id number]. REASON FOR REFERRAL: Israel was referred for testing in order to help assess for any signs and symptoms of obsessive-compulsive disorder as well as gauge level of lethality. TEST ADMINISTERED: Israel completed the [place] Multiphasic Personality Inventory-2 (MMPI-2), and he also completed the Bea-Brown Obsessive-Compulsive Scale. RELEVANT HISTORY: This is Israel's third inpatient psychiatric admission with the prior 2 occurring when he was 16 years of age in his [place], [place]. Israel had endorsed experiencing suicidal rumination characterized by thoughts of hanging or jumping from a bridge after experiencing some intrusive and recurrent thoughts about his 's prior dating history. He was in October and is currently in his first year at [employer] and had recently had a conversation with his apparently about her prior dating experience. When she endorsed having had prior casual sex before they met, he has begun to experience obsessive thoughts about this issue. 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 Israel was attentive and participatory in group programming, asking pertinent clinical questions and engaging positively in individual conversation when getting test results feedback. When asked about possible marital duress, Israel instead endorsed more acute emotional duress in the context of his family of origin. He also describes difficulties "keeping up" with the demands of his current academic course and describes anticipating a meeting with his fredy imminently about what his options may be. Israel described anticipating taking leave of absence from the [email or web address] school and returning to their [place], [place]. TEST RESULTS: Israel endorsed significant levels of cynicism and pessimism inherent in an elevation on the FB scale (T = 83). He elevates the depression scale to a similar although somewhat less degree as well as a conversion hysteria scale which often is reflective of persons who tend to endorse difficulties in family and/or marital function. Persons who elevate the conversion hysteria scale are often described in terms of being somewhat naive and lack insight into theirs and others behavior. They typically deny any intrusive difficulties with psychological duress, but instead will endorse physical symptoms such as headaches and gastrointestinal duress. Such persons tend to look towards concrete solutions to difficulties rather than go through self-examination. Israel also describes difficulties in the social arena, reporting a preference to avoid crowds. He describes experiencing anxiety in the context of being amongst other people which apparently is consistent with his endorsement of enough interpersonal duress to elevate the psychoticism scales on this administration of the MMPI-2. Discussion with Venkat about how to ameliorate such symptoms by engaging in more social circumstances was not met with a favorable response. IMPRESSION AND RECOMMENDATIONS: Israel's acute sense of duress seems to have dissipated quickly with admission and he is reliably denying ongoing thoughts of suicidal rumination or having had intent. He described being anxious to get discharged so he can discuss his options with the fredy at [employer] in order explore possibilities including what he anticipates on medical leave of absence and returning to [place] for the immediate few weeks at least. He presents with good affect and exhibits variable affect and is emphatically related to both staff and peers. Continuing therapy should rule out any continuing presence of obsessive thoughts, although he denied any compulsive behaviors. Concerns regarding marital adjustment may be part of his obsessive thinking, although he endorses difficulties with family of origin in terms of function. Diagnostic impression includes major depressive disorder, recurrent, severe without psychosis with continued rule out of obsessive-compulsive disorder. [id number]/[facility] #: [id number]
== END 2019-06-25 12:00 | disposition home or self-care (01) | DRG 751 ==
LOC: ED 14:38 → BSU 06-21 11:42
PROVIDERS: ADMIT Psychiatry & Neurology Psychiatry; ATTEND Psychiatry & Neurology Psychiatry
DX: F33.2 Major depressive disorder, recurrent severe without psychotic features (principal); R45.851 Suicidal ideations
CPT/HCPCS: 36415; 80053; 80061; 80178; 80307; 80320; 80329; 81003; 83036; 84443; 85025; 96130; 99222; 99231; 99233; 99238; 99285; A9270-GY; G0480